=== PATIENT | male | born 1980 | race Caucasian/White ===

== ENCOUNTER 2018-09-19 09:03 | Emergency (ER) | payer SELFPAY ==
[2018-09-19] MEDS ORDERED: PENICILLIN V POTASSIUM 500 MG TABLET PO ONE (09:34)
[2018-09-19] MEDS ORDERED: LIDOCAINE 2% VISCOUS SOLN 20 ML UDCUP PO ONE (09:34)
--- NOTE | 2018-09-19 09:41 | ER Document Report ---
ED Oral Problem - General Chief Complaint: Toothache Stated Complaint: TOOTHACHE Time Seen by Provider: 09/19/18 09:27 Primary Care Provider: NE CALLAHAN MD [Primary Care Provider] - Follow up as needed Mode of Arrival: Ambulatory Information source: Patient Notes: 38-year-old male presents to ED for complaint of dental pain to the right lower jaw. He has multiple teeth on the right lower jaw that are painful and decayed. He states he has a dental appointment on Monday to have multiple teeth removed. He states he plans to have most of the teeth removed as they are all decayed. He states he is already had all of the top teeth removed. Patient is alert oriented respirations regular and unlabored no signs or symptoms of Miles's angina. We will treat the patient with some penicillin VK I have offered him Tylenol and he states he can get some Tylenol when he got home. I have also given him a syringe of viscous lidocaine that he can apply a small amount to the gums and teeth every 4 hours. He has been given precautions about using the viscous lidocaine. He will keep his appointment with the dentist on Monday. TRAVEL OUTSIDE OF THE [place] IN LAST 30 DAYS: No - HPI Patient complains to provider of: Toothache Onset: Last week Onset: Gradual Quality of pain: Achy, Throbbing Severity: Moderate Pain Level: 4 Associated symptoms: Toothache Worsened by: Cold Relieved by: Nothing Recently seen / treated by doctor/dentist: No - Related Data Allergies/Adverse Reactions: No Known Allergies Allergy (Verified 09/19/18 09:04) Past Medical History - General Information source: Patient - Social History Smoking Status: Current Every Day Smoker Cigarette use (# per day): Yes - Pack per day Smoking Education Provided: Yes - 4 minutes Frequency of alcohol use: Social Drug Abuse: Marijuana 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 Lives with: Family Family History: Arthritis, CVA, DM, Hypertension Patient has suicidal ideation: No Patient has homicidal ideation: No - Past Medical History Cardiac Medical History: Reports: Hx Hypertension Pulmonary Medical History: Reports: None EENT Medical History: Reports: None Neurological Medical History: Reports: None Endocrine Medical History: Reports: Hx Diabetes Mellitus Type 2 Renal/ Medical History: Reports: None Malignancy Medical History: Reports None GI Medical History: Reports: Hx Ulcer Musculoskeletal Medical History: Reports Hx Arthritis Skin Medical History: Reports None Psychiatric Medical History: Reports: Hx Anxiety, Hx Bipolar Disorder, Hx Depression Traumatic Medical History: Reports: None Infectious Medical History: Reports: None Surgical Hx: Negative Past Surgical History: Reports: Hx Tonsillectomy - Immunizations Immunizations up to date: Yes Hx Diphtheria, Pertussis, Tetanus Vaccination: Yes - 04/21/12 Review of Systems - Review of Systems Constitutional: No symptoms reported EENT: Mouth pain, Dental problem Cardiovascular: No symptoms reported Respiratory: No symptoms reported Gastrointestinal: No symptoms reported Genitourinary: No symptoms reported Male Genitourinary: No symptoms reported Musculoskeletal: No symptoms reported Skin: No symptoms reported Hematologic/Lymphatic: No symptoms reported Neurological/Psychological: No symptoms reported -: Yes All other systems reviewed and negative Physical Exam - Vital signs Vitals: Temp Pulse Resp BP Pulse Ox 97.9 F 112 H 20 149/93 H 96 09/19/18 09:05 09/19/18 09:05 09/19/18 09:05 09/19/18 09:05 09/19/18 09:05 Interpretation: Normal - General General appearance: Appears well, Alert - HEENT Head: Normocephalic, Atraumatic Eyes: Normal Pupils: PERRL Ears: Normal External canal: Normal Tympanic membrane: Normal Sinus: Normal Nasal: Normal Mouth/Lips: Caries Mucous membranes: Normal Teeth diagram: 1 - Multiple dental cavities with minimal swelling to the gums surrounding the teeth Pharynx: Normal Neck: Normal - Respiratory Respiratory status: No respiratory distress Chest status: Nontender Breath sounds: Normal Chest palpation: Normal - Cardiovascular Rhythm: Regular Heart sounds: Normal auscultation Murmur: No - Abdominal Inspection: Normal Distension: No distension Bowel sounds: Normal Tenderness: Nontender Organomegaly: No organomegaly - Back Back: Normal, Nontender - Extremities General upper extremity: Normal inspection, Nontender, Normal color, Normal ROM, Normal temperature General lower extremity: Normal inspection, Nontender, Normal color, Normal ROM, Normal temperature, Normal weight bearing. No: David's sign - Neurological Neuro grossly intact: Yes Cognition: Normal Orientation: AAOx4 Ramila Coma Scale Eye Opening: Spontaneous [place] Coma Scale Verbal: Oriented [place] Coma Scale Motor: Obeys Commands Ramila Coma Scale Total: 15 Speech: Normal Motor strength normal: LUE, RUE, LLE, RLE Sensory: Normal - Psychological Associated symptoms: Normal affect, Normal mood - Skin Skin Temperature: Warm Skin Moisture: Dry Skin Color: Normal Course - Vital Signs Vital signs: Temp Pulse Resp BP Pulse Ox 97.9 F 107 H 18 131/85 H 96 09/19/18 09:05 09/19/18 09:53 09/19/18 09:53 09/19/18 09:53 09/19/18 09:53 Discharge - Discharge Clinical Impression: Pain due to dental caries Condition: Stable Disposition: HOME, SELF-CARE Additional Instructions: TOOTHACHE: Your pain is due to dental decay. The tooth must be repaired in order for you to feel better. You will, therefore, be referred to a dentist. We do not have dentists on the staff at [facility]. Severe swelling or drainage around a tooth usually means a dental abscess. This also requires evaluation and treatment by the dentist, but antibiotics may be prescribed while awaiting dental treatment. You should be rechecked immediately if you develop major swelling of the face, increasing pain, a lump in the jaw or gums, headache, difficulty swallowin g, or fever. PENICILLIN V K: You have been given a prescription for Penicillin VK. Your physician has determined that this is the best antibiotic for your condition. Pen VK can be taken with meals, however more of the antibiotic gets into the bloodstream if it's taken on an empty stomach. Penicillin usually has no side effects. However, allergy to penicillins is common. If you have had an allergic reaction to any drug of the penicillin family, you should never take any other penicillin. Notify your doctor at once if you develop hives, itching, swelling, faintness, or shortness of breath. I have given you a syringe of viscous lidocaine. You can put a small dab on your finger and apply it to the gums and tooth every 4 hours as needed for pain using it more often than that we will just eroded the skin on your gums and will not help with the pain. Even if he swallowed a whole syringe of lidocaine it would not have any effect except for make your throat numb and your tongue numb so please be careful. FOLLOW-UP CARE: You have been referred for follow-up care to the dentists listed below. Call the dentists office for an appointment as you were instructed or within the next two days. If you experience worsening or a significant change in your symptoms, notify the physician immediately or return to the Emergency Department at any time for re-evaluation. [facility] [address] [place], [place] [facility] [address] [place] [address] [facility] [address] [facility] [address] [facility] [address] [facility] [email or web address] [address] [place] [address] Monday- 8:00am to 5:00 pm Will see patients from other [facility]. Charges based on income and family size and accepts Medicare, Medicaid, and Insurances Will pull molars [facility] [address] Hours of Operation 8:00 am - 4:30 pm weekdays The following dental offices accept Medicaid: [facility] [place] [facility] Dr[address] Ovalle Dr. Corea Dr. Gibson Dr. Kim Ras Mccarty [place], and [facility] Dr. Jauregui ([place]) Dr. Kaminski ([place]) [facility] Drs. Weinberg ([place]) Dr. Horowitz ([place]) [facility] Dr. Savage ([place]) Drs. Gaytan and ([place]) Medicaid Care Line Prescriptions: Penicillin V Potassium [Penicillin Vk 500 mg Tablet] 500 mg PO BID #20 tablet Forms: Elevated Blood Pressure, Smoking Cessation Education Referrals: NE CALLAHAN MD [Primary Care Provider] - Follow up as needed
[2018-09-19 09:57] VITALS: BP 131/85
== END 2018-09-19 09:57 | disposition home or self-care (01) ==
LOC: ER 09:03
DX: K02.9 Dental caries, unspecified (principal); K08.89 Other specified disorders of teeth and supporting structures; F17.210 Nicotine dependence, cigarettes, uncomplicated; Z71.6 Tobacco abuse counseling; E11.9 Type 2 diabetes mellitus without complications; I10 Essential (primary) hypertension
CPT/HCPCS: 99406; 99282; J3490

== ENCOUNTER 2019-04-26 18:04 | Emergency (ER) | payer SELFPAY ==
--- NOTE | 2019-04-26 18:40 | ER Document Report ---
ED Cardiac - General Chief Complaint: Chest Pain Stated Complaint: CHEST PAIN,LEFT SIDE NUMBNESS,SHARP ADOMINAL PAIN Time Seen by Provider: 04/26/19 18:37 Primary Care Provider: NE CALLAHAN MD [ACTIVE STAFF] - Follow up as needed TRAVEL OUTSIDE OF THE [place] IN LAST 30 DAYS: No - HPI Notes: 38-year-old male to the emergency department with complaints of left-sided chest pain left upper abdominal pain and facial numbness for the past week. He states that he has associated shortness of breath. He also endorses nausea. Denies any vomiting. He states that he sweats all the time so he has not noticed an increase in sweating. He is a diabetic and hypertensive Patient. He denies any past medical history of MS. He denies any family history of MS. He states that he does smoke. He also states that for the past week he has been having some difficulty with his speech. He states on occasion he will have stuttering and involuntary movements of his tongue and mouth. He states that it does not display all the time but he has had this in the past week. He does admit that he takes Lamictal, Seroquel, Zoloft. He has not had an increase in these medicines in the past week. He states that his chest pain does not increase with exertion. He is never had a stress test before. - Related Data Allergies/Adverse Reactions: No Known Allergies Allergy (Verified 09/19/18 09:04) Past Medical History - General Information source: Patient - Social History Smoking Status: Current Every Day Smoker Frequency of alcohol use: Rare Drug Abuse: None Lives with: Family Family History: Arthritis, CVA, DM, Hypertension - Past Medical History Cardiac Medical History: Reports: Hx Hypertension Endocrine Medical History: Reports: Hx Diabetes Mellitus Type 2 Renal/ Medical History: Denies: Hx Peritoneal Dialysis GI Medical History: Reports: Hx Ulcer Musculoskeletal Medical History: Reports Hx Arthritis Psychiatric Medical History: Reports: Hx Anxiety, Hx Bipolar Disorder, Hx Depression Past Surgical History: Reports: Hx Tonsillectomy - Immunizations Immunizations up to date: Yes Hx Diphtheria, Pertussis, Tetanus Vaccination: Yes - 04/21/12 Review of Systems - Review of Systems Constitutional: Diaphoresis - ,. denies: Chills, Fever EENT: No symptoms reported Cardiovascular: Chest pain, Palpitations. denies: Heart racing - And she is able to cover however, Orthopnea, Dyspnea, Syncope, Dizziness, Lightheaded Respiratory: Short of breath. denies: Cough Gastrointestinal: Nausea. denies: Abdominal pain, Diarrhea, Vomiting Genitourinary: denies: Dysuria, Frequency Musculoskeletal: No symptoms reported Skin: No symptoms reported Hematologic/Lymphatic: No symptoms reported Neurological/Psychological: No symptoms reported -: Yes All other systems reviewed and negative Physical Exam - Vital signs Vitals: Temp Pulse Resp BP Pulse Ox 98.7 F 128 H 20 120/74 95 04/26/19 18:29 04/26/19 18:29 04/26/19 18:29 04/26/19 18:29 04/26/19 18:29 Interpretation: Normal - General General appearance: Appears well, Alert In distress: None - HEENT Head: Normocephalic, Atraumatic Eyes: Normal Pupils: PERRL Neck: Normal, Supple. No: Lymphadenopathy, Meningismus - Respiratory Respiratory status: No respiratory distress Chest status: Nontender Breath sounds: Normal. No: Rales, Rhonchi, Stridor, Wheezing Chest palpation: Normal - Cardiovascular Rhythm: Regular Heart sounds: Normal auscultation Murmur: No - Abdominal Inspection: Obese - Lesion. Distension: No distension Bowel sounds: Normal Tenderness: Tender - Tenderness to palpation over the left upper quadrant.. No: McBurney's point, Leon's sign, Guarding, Rebound Organomegaly: No organomegaly - Back Back: Normal, Nontender - Neurological Neuro grossly intact: Yes Cognition: Normal Orientation: AAOx4 Ramila Coma Scale Eye Opening: Spontaneous Ramila Coma Scale Verbal: Oriented [place] Coma Scale Motor: Obeys Commands Ramila Coma Scale Total: 15 Speech: Normal Cranial nerves: Other - Cranial nerves are intact cranial nerves II through XII. However there is been noted abnormal involuntary tongue and lip movement. It appears to be take like an appearance and when patient has several of these involuntary movements at times he has difficulty he with his speech and stutters. Cerebellar coordination: Normal Motor strength normal: LUE, RUE, LLE, RLE Additional motor exam normals: Equal allergist immunologist. No: Pronator drift Sensory: Normal - Psychological Associated symptoms: Normal affect, Normal mood - Skin Skin Temperature: Warm Skin Moisture: Dry Skin Color: Normal Course - Re-evaluation Re-evalutation: 04/27/19 00:[address] [place]. She went and saw patient. She agrees he is safe for discharge home. He inquires about medicine for anxiety. Will write for Vistaril. Encouraged follow up with PCP and psychiatry. Involuntary movements of the mouth have improved since benadryl. - Vital Signs Vital signs: Temp Pulse Resp BP Pulse Ox 98.7 F 128 H 20 108/59 L 96 04/26/19 18:29 04/26/19 18:29 04/26/19 23:01 04/26/19 23:01 04/26/19 23:01 04/27/19 00:18 Selected Entries 04/26/19 23:01 Heart Rate ( 98 Monitors) Respiratory 20 Rate Blood Pressure 108/59 L Blood Pressure 75 Mean O2 Sat by Pulse 96 Oximetry noted significantly improved HR and vital signs. Patient is no longer tachycardic. - Laboratory Result Diagrams: 04/26/19 18:43 04/26/19 18:43 Laboratory results interpreted by me: 04/26/19 18:43 WBC 11.4 H RDW 14.3 H - Diagnostic Test Radiology reviewed: Image reviewed, Reports reviewed - EKG Interpretation by Me EKG shows normal: Sinus rhythm Rate: Tachycardia Rhythm: Other - sinus tachycardia When compared to previous EKG there are: No significant change Additional EKG results interpreted by me: No STEMI, no ST changes. + tachycardia at rate of 125 Discharge - Discharge Clinical Impression: Abdominal pain, left upper quadrant, Involuntary movements Chest pain Qualifiers: Chest pain type: unspecified Qualified Code(s): R07.9 - Chest pain, unspecified Condition: Stable Disposition: HOME, SELF-CARE Instructions: Chest Pain of Unclear Cause ([facility]) Additional Instructions: take medicines as prescribed. Use Hydroxyzine for anxiety. Follow up with primary care and psychiatrist. return if worsening symptoms. Prescriptions: Hydroxyzine Pamoate [Vistaril 25 mg Capsule] 25 mg PO BID #12 capsule Referrals: NE CALLAHAN MD [ACTIVE STAFF] - Follow up in 1 week
[2019-04-26 19:02] LABS: ABSOLUTE EOSINOPHILS # (AUTO) 0.3 10^3/uL (0.0-0.6); ABSOLUTE LYMPHOCYTES (AUTO) 2.3 10^3/uL (0.5-4.7); ABSOLUTE MONOCYTES (AUTO) 0.8 10^3/uL (0.1-1.4); ABSOLUTE NEUT (AUTO) 7.9 10^3/uL (1.7-8.2); BASOPHILS % (AUTO) 0.2 % (0-2); EOSINOPHILS % (AUTO) 2.6 % (0-6); HEMATOCRIT 41.5 % (37.9-51.0); HEMOGLOBIN 14.2 g/dL (13.5-17.0); LYMPHOCYTES % (AUTO) 20.5 % (13-45); MEAN CORPUSCULAR HEMOGLOBIN 29.6 pg (27.0-33.4); MEAN CORPUSCULAR HGB CONC 34.4 g/dL (32.0-36.0); MEAN CORPUSCULAR VOLUME 86 fl (80-97); PLATELET COUNT 335 10^3/uL (150-450); RED BLOOD COUNT 4.81 10^6/uL (4.35-5.55); RED CELL DISTRIBUTION WIDTH 14.3 % (11.5-14.0); SEGMENTED NEUTROPHILS % (AUTO) 69.7 % (42-78); TOTAL CELLS COUNTED % (AUTO) 100 %; WHITE BLOOD COUNT 11.4 10^3/uL (4.0-10.5)
[2019-04-26 19:05] LABS: INTERNATIONAL RATION (INR) 0.95; PROTHROMBIN TIME 12.6 SEC (11.4-15.4)
[2019-04-26 19:06] LABS: PARTIAL THROMBOPLASTIN TIME 30.4 SEC (23.5-35.8)
--- NOTE | 2019-04-26 19:08 | RADIOLOGY REPORT (SQ) ---
EXAM DESCRIPTION: CHEST 2 VIEWS COMPLETED DATE/TIME: 04/26/2019 6:47 pm REASON FOR STUDY: cp COMPARISON: None. EXAM PARAMETERS: NUMBER OF VIEWS: two views TECHNIQUE: Digital Frontal and Lateral radiographic views of the chest acquired. RADIATION DOSE: NA LIMITATIONS: none FINDINGS: LUNGS AND PLEURA: Linear density left lung base likely representing subsegmental atelectas is or scarring. No focal airspace consolidation, pneumothorax or pleural effusion. MEDIASTINUM AND HILAR STRUCTURES: No masses or contour abnormalities. HEART AND VASCULAR STRUCTURES: Heart normal size. No evidence for failure. BONES: No acute findings. HARDWARE: None in the chest. OTHER: No other significant finding. IMPRESSION: No acute pulmonary findings. TECHNICAL DOCUMENTATION: JOB ID: [id number] [employer]- All Rights Reserved Reading location - IP/workstation name: [email or web address]
[2019-04-26] MEDS ORDERED: NORMAL SALINE 1000 ML 1,000 ML IV ONE (19:18)
[2019-04-26] MEDS ORDERED: ASPIRIN 81 MG TABLET, CHEWABLE PO ONE (19:18)
[2019-04-26 19:27] LABS: ALBUMIN 4.2 g/dL (3.5-5.0); ALKALINE PHOSPHATASE 75 U/L (38-126); ANION GAP 11 (5-19); ASPARTATE AMINO TRANSFERASE 23 U/L (17-59); BILIRUBIN,DIRECT 0.2 mg/dL (0.0-0.4); BILIRUBIN,TOTAL 0.6 mg/dL (0.2-1.3); BLOOD UREA NITROGEN 11 mg/dL (7-20); CARBON DIOXIDE 24 mmol/L (22-30); CHLORIDE 104 mmol/L (98-107); CREATINE KINASE 141 U/L (55-170); GLUCOSE 102 mg/dL (75-110); POTASSIUM 4.2 mmol/L (3.6-5.0); TOTAL PROTEIN 7.2 g/dL (6.3-8.2)
[2019-04-26 19:42] LABS: TROPONIN I < 0.012 ng/mL
--- NOTE | 2019-04-26 21:18 | RADIOLOGY REPORT (SQ) ---
CT HEAD WITHOUT IV CONTRAST EXAM DATE: 04/26/2019 7:15 PM [employer] HISTORY: Facial numbness. COMPARISON: None. TECHNIQUE: CT scan of the brain without IV contrast. This exam was performed according to our departmental dose-optimization program, which includes automated exposure control, adjustment of the mA and/or kV according to patient size and/or use of iterative reconstruction technique. FINDINGS: The ventricles, cisterns, and sulci are age-appropriate. No evidence of acute infarction, intracranial hemorrhage, extra-axial fluid collection, or midline shift. No air-fluid levels are seen in the paranasal sinuses to suggest acute sinusitis. No depressed skull fracture. IMPRESSION: No acute intracranial findings.
[2019-04-26] MEDS ORDERED: DIPHENHYDRAMINE HCL 50 MG/ML VIAL IV ONE (23:02)
[2019-04-27 01:07] VITALS: BP 113/69
--- NOTE | 2019-04-27 21:31 | EKG REPORT ---
SEVERITY:- ABNORMAL ECG - SINUS TACHYCARDIA BORDERLINE INFERIOR Q WAVES NONSPECIFIC T ABNORMALITIES, DIFFUSE LEADS : Confirmed by: Severo Seo 27-Apr-2019 21:30:29
== END 2019-04-27 01:04 | disposition home or self-care (01) ==
LOC: ER 18:04
DX: R25.9 Unspecified abnormal involuntary movements (principal); R10.12 Left upper quadrant pain; R07.9 Chest pain, unspecified; R20.0 Anesthesia of skin; R11.0 Nausea; E11.9 Type 2 diabetes mellitus without complications; I10 Essential (primary) hypertension; F17.200 Nicotine dependence, unspecified, uncomplicated; Z79.899 Other long term (current) drug therapy
CPT/HCPCS: 93005; 36415; 82553; 82550; 83735; 85025; 85610; 85730; 80053; 80175; 84484; 71046; 70450; 93010; J1200; J7030; 96361; 96374; 99285

== ENCOUNTER 2020-07-01 19:46 | Emergency (ER) | payer BC ==
[2020-07-01 20:05] LABS: ABSOLUTE BASOPHILS # (AUTO) 0.1 10^3/uL (0.0-0.2); ABSOLUTE EOSINOPHILS # (AUTO) 0.4 10^3/uL (0.0-0.6); ABSOLUTE LYMPHOCYTES (AUTO) 2.6 10^3/uL (0.5-4.7); ABSOLUTE MONOCYTES (AUTO) 0.6 10^3/uL (0.1-1.4); ABSOLUTE NEUT (AUTO) 6.1 10^3/uL (1.7-8.2); EOSINOPHILS % (AUTO) 3.9 % (0-6); HEMATOCRIT 39.5 % (37.9-51.0); HEMOGLOBIN 13.7 g/dL (13.5-17.0); LYMPHOCYTES % (AUTO) 26.3 % (13-45); MEAN CORPUSCULAR HEMOGLOBIN 29.3 pg (27.0-33.4); MEAN CORPUSCULAR HGB CONC 34.7 g/dL (32.0-36.0); MEAN CORPUSCULAR VOLUME 84 fl (80-97); PLATELET COUNT 268 10^3/uL (150-450); RED BLOOD COUNT 4.69 10^6/uL (4.35-5.55); SEGMENTED NEUTROPHILS % (AUTO) 62.8 % (42-78); TOTAL CELLS COUNTED % (AUTO) 100 %; WHITE BLOOD COUNT 9.8 10^3/uL (4.0-10.5)
[2020-07-01 20:18] LABS: ALKALINE PHOSPHATASE 86 U/L (38-126); ANION GAP 10 (5-19); ASPARTATE AMINO TRANSFERASE 23 U/L (17-59); BILIRUBIN,DIRECT 0.3 mg/dL (0.0-0.4); BILIRUBIN,TOTAL 0.3 mg/dL (0.2-1.3); BLOOD UREA NITROGEN 7 mg/dL (7-20); CALCIUM 9.5 mg/dL (8.4-10.2); CARBON DIOXIDE 28 mmol/L (22-30); CHLORIDE 101 mmol/L (98-107); GLUCOSE 89 mg/dL (75-110); POTASSIUM 3.8 mmol/L (3.6-5.0); TOTAL PROTEIN 6.7 g/dL (6.3-8.2)
[2020-07-01 20:21] LABS: ALCOHOL < 10 mg/dL (NONE DETECTED)
[2020-07-01 21:00] LABS: APPEARANCE,URINE CLEAR; BILIRUBIN,URINE NEGATIVE (NEGATIVE); COLOR,URINE STRAW; GLUCOSE, URINE NEGATIVE (NEGATIVE); KETONES,URINE NEGATIVE (NEGATIVE); LEUKOCYTE ESTERASE,URINE NEGATIVE (NEGATIVE); NITRITE,URINE NEGATIVE (NEGATIVE); PROTEIN,URINE NEGATIVE (NEGATIVE); URINE SPECIFIC GRAVITY 1.008; UROBILINOGEN,URINE NEGATIVE mg/dL (<2.0)
[2020-07-01 21:20] LABS: URINE AMPHETAMINES SCREEN NEGATIVE; URINE BARBITURATES SCREEN NEGATIVE; URINE COCAINE SCREEN NEGATIVE; URINE MARIJUANA (THC) SCREEN NEGATIVE; URINE METHADONE SCREEN NEGATIVE; URINE PHENCYCLIDINE SCREEN NEGATIVE
[2020-07-01 21:22] LABS: URINE BENZODIAZEPINES SCREEN UNCONFIRMED POSITIVE
[2020-07-01] MEDS ORDERED: CLONAZEPAM 1 MG TABLET PO ONE (22:54)
--- NOTE | 2020-07-01 23:30 | ER Document Report ---
ED General - General Chief Complaint: Seizure Stated Complaint: SEIZURES Primary Care Provider: SIRENA ALONSO MD [NO LOCAL MD] - Follow up as needed THOMAS HUNT MD [NO LOCAL MD] - Follow up as needed EFREN HAZEL DO [NO LOCAL MD] - Follow up as needed RHIANNON LASSITER MD [EMERITUS] - Follow up as needed ANGI CABA PA-C [Primary Care Provider] - Follow up as needed Notes: 40-year-old male with history of anxiety, diabetes presents with seizure just prior to arrival. Patient was lying on couch and then suddenly started having whole body shaking movements that lasted for approximately 1 minute and then resolved without intervention. Patient was briefly confused after symptoms resolved and then returned to his mental status baseline. Patient has been feeling tremulous over the past few days since running out of his Xanax prescription. Patient says that he ran out early because of recent increased anxiety symptoms prompting him to take additional doses, denies SI or HI. Patient had a seizure few years ago which she was evaluated for in the ED but has not seen a neurologist previously. Patient denies any recent illness, other medication changes, fever, neck pain or stiffness, headache, weakness or numbness, change in vision/speech/gait, vertigo, trauma, alcohol or illicit drug use or withdrawal TRAVEL OUTSIDE OF THE [place] IN LAST 30 DAYS: No - Related Data Allergies/Adverse Reactions: No Known Allergies Allergy (Verified 09/19/18 09:04) Home Medications: Xanax. Austedo. Lisinopril. Lamotrigine. Citalopram. Sertraline. Metformin Past Medical History - General Information source: Patient, Relative - Social History Smoking Status: Current Every Day Smoker Frequency of alcohol use: Occasional Family History: Arthritis, CVA, DM, Hypertension - Past Medical History Cardiac Medical History: Reports: Hx Hypertension Endocrine Medical History: Reports: Hx Diabetes Mellitus Type 2 Renal/ Medical History: Denies: Hx Peritoneal Dialysis GI Medical History: Reports: Hx Ulcer Musculoskeletal Medical History: Reports Hx Arthritis Psychiatric Medical History: Reports: Hx Anxiety, Hx Bipolar Disorder, Hx Depression Past Surgical History: Reports: Hx Tonsillectomy - Immunizations Immunizations up to date: Yes Hx Diphtheria, Pertussis, Tetanus Vaccination: Yes - 04/21/12 Review of Systems - Review of Systems Notes: REVIEW OF SYSTEMS: CONSTITUTIONAL : Denies fever, chills, or sweats. EENT: Denies recent cold/sinus symptoms, denies throat pain CARDIOVASCULAR: Denies chest pain, MICK RESPIRATORY: Denies cough, denies shortness of breath. GASTROINTESTINAL: Denies abdominal pain, nausea/vomiting. GENITOURINARY: Denies difficulty urinating, painful urination. MUSCULOSKELETAL: Denies neck pain, back pain. SKIN: Denies rash or skin lesions. HEMATOLOGIC : Denies easy bruising or bleeding. LYMPHATIC: Denies swollen, enlarged glands. NEUROLOGICAL: Denies headache, denies change in gait. PSYCHIATRIC: + anxiety or stress Physical Exam - Vital signs Vitals: Resp BP Pulse Ox 17 110/76 97 07/01/20 19:49 07/01/20 19:49 07/01/20 19:49 - Notes Notes: PHYSICAL EXAMINATION: GENERAL: Well-appearing, well-nourished and in no acute distress. HEAD: Atraumatic, normocephalic. EYES: Pupils equal round and appropriate constriction, sclera anicteric, conjunctiva are normal. ENT: nares patent, moist mucous membranes. NECK: Normal range of motion, supple without lymphadenopathy LUNGS: Breath sounds clear to auscultation bilaterally and equal. No wheezes rales or rhonchi. HEART: Regular rate and rhythm without murmurs ABDOMEN: Soft, nontender, no guarding, no masses, no CVAT EXTREMITIES: Normal range of motion, no pitting or edema. No cyanosis. NEUROLOGICAL: Awake, alert, conversing appropriately, moves all extremities spontaneously. Cranial nerves II through XII intact bilaterally, normal [id number] bilaterally, 5 out of 5 strength in all extremities, normal sensation in all extremities, mild tremors in extremities, no psychomotor agitation PSYCH: Normal mood, normal affect. SKIN: Warm, Dry, normal turgor, no rashes or lesions noted. Course - Re-evaluation Re-evalutation: 07/01/20 23:27 Patient with seizure with prior history of one seizure a few years ago currently appears to have been provoked by seizing is chronic Xanax 3 days ago. Patient mildly tremulous in the ED but no other signs of withdrawal, mentating normally, normal vital signs. Spoke to patient at length about his benzo dependence and his options for treatment. Offered to transfer [facility] if he currently wants to stop using benzos but otherwise he needs to call his psychiatrist tomorrow and discuss his seizure and make plan for possible outpatient tapering. Patient did not want to go to detox currently and is not currently needing hospitalization for benzo withdrawal, gave dose of Klonopin to control symptoms until he is able to speak to his psychiatrist in the morning. Instructed patient that he can not stop taking benzos without medical assistance and that if he is unable to follow-up with his psychiatrist tomorrow or go to detox tomorrow that he needs to return to the ED to make a new plan for his withdrawal management. I gave patient extensive seizure precautions and he says that he will not be driving or doing any swimming or bathing or any other activities that would be dangerous to have a seizure while doing them until he is cleared by his psychiatrist. Also recommended that patient follow-up with a neurologist and will give him referral information. Patient and demonstrate understanding of the dangers of benzo withdrawal and are in agreement with plan and denied having any other questions or concerns. Heart rate initially mildly elevated but resolved without intervention likely secondary to exertion prior to triage vitals being taken, normalized before giving Klonopin. - Vital Signs Vital signs: Temp Pulse Resp BP Pulse Ox 98.3 F 104 H 18 110/75 94 07/01/20 23:39 07/01/20 20:03 07/01/20 23:39 07/01/20 23:39 07/01/20 23:39 - Laboratory Results Result Diagrams: 07/01/20 19:52 07/01/20 19:52 Laboratory Results Interpreted: 07/01/20 19:52 RDW 15.0 H Critical Laboratory Results Reviewed: No Critical Results - Radiology Results Critical Radiology Results Reviewed: No Critical Results Discharge - Discharge Clinical Impression: Seizure Benzodiazepine withdrawal Qualifiers: Complication of substance-induced condition: with unspecified complication Qualified Code(s): F13.239 - Sedative, hypnotic or anxiolytic dependence with withdrawal, unspecified Disposition: HOME, SELF-CARE Additional Instructions: Follow-up with your psychiatrist tomorrow without fail to make a plan for managing your Xanax dependence. Is extremely important that you either see your psychiatrist tomorrow or go to rehab tomorrow and if you are not able to do either you should return to the emergency department to help with managing your withdrawal. Benzodiazepine withdrawal which you are experiencing is a dangerous medical condition and requires medical supervision or you are at risk for seizure and/or . If you have inability to follow-up tomorrow or he had any worsening symptoms return to the emergency department immediately. Follow-up with your primary doctor and the neurologist within 1 week. Referrals: ANGI CABA PA-C [Primary Care Provider] - Follow up as needed RHIANNON LASSITER MD [EMERITUS] - Follow up as needed SIRENA ALONSO MD [NO LOCAL MD] - Follow up as needed THOMAS HUNT MD [NO LOCAL MD] - Follow up as needed EFREN HAZEL DO [NO LOCAL MD] - Follow up as needed
[2020-07-01 23:51] VITALS: BP 110/75
== END 2020-07-01 23:51 | disposition home or self-care (01) ==
LOC: ER 19:46
DX: R56.9 Unspecified convulsions (principal); F13.239 Sedative, hypnotic or anxiolytic dependence with withdrawal, unspecified; F41.9 Anxiety disorder, unspecified; E11.9 Type 2 diabetes mellitus without complications; F17.200 Nicotine dependence, unspecified, uncomplicated; I10 Essential (primary) hypertension
CPT/HCPCS: 36415; 80053; 80307; 81001; 82962; 83735; 85025; 99283